=== PATIENT | female | born 1980 | race Caucasian/White ===

== ENCOUNTER 2017-05-04 14:31 | Emergency (ER) | payer BC ==
[~2017-05-04] VITALS: Ht 170.2 cm; Wt 63.5 kg
--- NOTE | 2017-05-04 15:32 | NUR ---
Patient discharged to home in stable conditon. Written and verbal after care instructions given. Patient verbalizes understanding of instructions. Crutches dispensed per MD's order along with X-ray CD per MD's order. Educated pt with crutches. Pt verbalized understanding and demonstrated proper technique. No further questions or concerned noted prior on leaving the ED.
== END 2017-05-04 15:40 | disposition home or self-care (01) ==
LOC: ER 14:33
DX: S90.122A Contusion of left lesser toe(s) without damage to nail, initial encounter (principal); W22.03XA Walked into furniture, initial encounter; Y93.89 Activity, other specified; Y92.9 Unspecified place or not applicable; Y99.9 Unspecified external cause status
CPT/HCPCS: 73660; A4663